=== PATIENT | female | born 1985 | race Caucasian/White ===

== ENCOUNTER → 2018-04-02 14:00 | Outpatient (CLI) | payer SELFPAY ==
[2018-04-03 17:13] LABS: Chlamydia Trachomatis by PCR Negative (Negative); Neisserai gonorrhoeae by PCR Negative (Negative); Probe Check PASS; Sample Adequacy Control PASS; Specimen Processing Control PASS
[2018-04-08 14:24] LABS: HPV Reflexed? NOT INDICATED
== END ==
PROVIDERS: Visit Provider Obstetrics & Gynecology
DX: Z12.4 Encounter for screening for malignant neoplasm of cervix (principal); Z11.3 Encounter for screening for infections with a predominantly sexual mode of transmission
CPT/HCPCS: 87491; 87591; 88175; G0145

== ENCOUNTER → 2018-05-02 10:33 | Outpatient (CLI) | payer SELFPAY ==
[2018-05-02 12:05] LABS: Color, Urine Yellow (Yellow); Glucose, Dipstick Normal (Normal); Ketone-Dipstick Negative (Negative); Leukocyte Esterase-Dipstick 500 /ul (Negative); Nitrite-Dipstick Negative (Negative); Occult Blood-Urine Negative /ul (Negative); Protein-Dipstick Negative (Negative); Urine Bilirubin Dipstick Negative (Negative); Urine Clarity Sl Cldy (Clear); Urine Urobilinogen Normal (Normal)
[2018-05-02 12:11] LABS: Absolute Lymphocyte Count 1.28 X10^3/ul (0.83-4.51); Absolute Neutrophil Count 7.5 X10^3/uL (2.0-7.7); Basophil# 0.01 X10^3/uL; Basophil% 0.1 % (0-1); Eosinophils% 1.1 % (0-5); Hemoglobin 11.3 g/dl (12.0-15.0); Lymphocyte # 1.28 X10^3/ul (4.0); Lymphocyte % 13.5 % (19-41); Mean Corp Hgb Conc 33.2 g/gl (32-36); Mean Corpuscular Hgb 30.5 pg (27.0-32.0); Mean Corpuscular Volume 91.6 fL (81-99); Mean Platelet Vol. 9.3 fl (6.2-12.0); Monocyte# 0.58 X10^3/uL; Monocyte% 6.1 % (0-10); Neutrophil # 7.47 X10^3/uL (2.7-7.7); Neutrophil % 78.5 % (47-70); Platelet Count 235 K/mm3 (150-450); RBC Distribution Width SD 45.6 fl (35.1-43.9); Red Blood Count 3.71 M/mm3 (4.2-5.4); White Blood Count 9.5 K/mm3 (4.4-11.0)
[2018-05-02 12:13] LABS: POSITIVE COUNT NO; POSITIVE DIFFERENTIAL NO; POSITIVE MORPHOLOGY NO
[2018-05-02 12:36] LABS: Thyroid Stim Hormone (TSH) 0.75 uIU/mL (0.358-3.74)
[2018-05-02 13:22] LABS: HIV - WCH Non-Reactive (Nonreactive); Rubella IgG 109.9 IU/mL
[2018-05-03 01:18] LABS: Prenatal RPR NONREACTIVE (NONREACTIVE)
[2018-05-03 10:58] LABS: HEPATITIS B SURFACE AG Negative (Negative); Hep C Antibodies <0.1 s/co ratio (0.0-0.9)
== END ==
LOC: WOBLAB 10:34
PROVIDERS: Visit Provider Obstetrics & Gynecology
DX: Z34.82 Encounter for supervision of other normal pregnancy, second trimester (principal)
CPT/HCPCS: 36415; 81002; 84443; 85025; 86703; 86762; 86803; 87340

== ENCOUNTER 2018-09-04 05:07 | Inpatient (IN) | payer MEDICAID, SELFPAY ==
[2018-09-04] VITALS (20 sets, daily range): BP systolic 84–104; BP diastolic 44–60; PULSE 59–78; RESP 14–18; TEMP 36.2–37; O2SAT 95–99; BMI 28.0
[2018-09-04] MEDS: Lactated Ringers 1,000 ML 999 ML IV (05:30)
[2018-09-04] MEDS: Lactated Ringers 1,000 ML 150 ML IV (06:01)
[2018-09-04 06:09] LABS: Prothrombin Time (Protime)PT. 13.2 SECONDS (11.7-14.9)
[2018-09-04 06:10] LABS: Partial Thromboplast Time 29.1 Seconds (24.1-36.2)
[2018-09-04 06:13] LABS: Hematocrit 35.9 % (37-47); Hemoglobin 11.9 g/dl (12.0-15.0); Mean Corp Hgb Conc 33.1 g/gl (32-36); Mean Corpuscular Hgb 31.4 pg (27.0-32.0); Mean Corpuscular Volume 94.7 fL (81-99); Mean Platelet Vol. 9.1 fl (6.2-12.0); Platelet Count 187 K/mm3 (150-450); RBC Distribution Width CV 14.2 % (11.6-14.6); RBC Distribution Width SD 46.3 fl (35.1-43.9); Red Blood Count 3.79 M/mm3 (4.2-5.4); White Blood Count 8.1 K/mm3 (4.4-11.0)
[2018-09-04 06:18] LABS: Differential Indicated MANUAL DIFF; POSITIVE COUNT YES; POSITIVE DIFFERENTIAL NO; POSITIVE MORPHOLOGY YES
[2018-09-04 07:04] LABS: Eosinophil 2 % (0-5); Lymphocyte 20 % (19-41); Metamyelocyte 1 % (0-1); Monocyte 5 % (0-10); Myelocyte 2 (0-0); Neutrophil-Band 1 % (0-5); Neutrophil-Segmented 69 % (47-70); Total Cells Counted 100 (MANUAL DIFF)
[2018-09-04 07:05] LABS: Anisocytosis 1+; Hypochromasia 1+; Microcytosis 1+; Platelet Estimate ADEQUATE (ADEQ); Polychromasia 1+
[2018-09-04] MEDS: Sodium Citrate/Citric Acid 30 ML UDC PO (07:22)
[2018-09-04] MEDS: Cefazolin 2 GM in 0.9% Normal Saline 100 ML IV (07:40)
--- NOTE | 2018-09-04 07:42 | PCM.OPRPT ---
Report of Operation Date of Procedure: 09/04/18 Pre-Operative Diagnosis: Prior Classical Section, Desires Sterilization Post-Operative Diagnosis: Prior Classical Section, Desires Sterilization Surgery/Procedure Performed:: Repeat Low Transverse Cervical Section and Bilateral Tubal Occlusion with Bilateral Salpingectomy Description of Surgical Findings:: Viable male with Apgars of 8/9 and an occiput anterior presentation with clear amniotic fluid. Dense adhesions of the omentum to the anterior uterus and dense adhesions of the uterus to the anterior abdominal wall. Normal-appearing fallopian tubes and ovaries. resident care spec: Kaitlin Mary Type of Anesthesia:: Spinal - with Duramorph Anesthesiologist: Eitan Cheung Drains: Lee to straight drain Estimated Blood Loss (mL): <500 cc Fluids Replaced: Crystalloid Description of Procedure: Surgeon: Jose Frey MD, FACOG Indication: This is a 32-year-old who presents for at 37 weeks gestation. care remarkable for a prior classical section for placenta previa at approximately 26-27 weeks gestation. care has otherwise been uneventful. The patient has been counseled regarding the risk and indications of this procedure including the possibility of bleeding infection and injury to surrounding structures such as bowel bladder. All questions were answered. Procedure: Patient was taken to the operating room where after spinal anesthesia was placed, the patient was prepped and draped in usual sterile fashion and a Lee catheter was placed. The abdomen was entered through the patient's prior Pfannenstiel incision and peritoneum was entered bluntly. After developing a bladder flap and performing extensive lysis of adhesions on the lower uterine segment a low transverse incision was made on the uterus and head was delivered onto the operative field the nose mouth and oropharynx were bulb suctioned. Kiwi suction was initially used due to high station of the head but was not necessary to deliver the head in the end. Subsequently a viable male was born with Apgars of 8/9. The was noted to cry move all extremities vigorously on the operative field. The umbilical cord was doubly clamped and ligated and handed to the nursery personnel who were present for the delivery. Placenta was delivered and noted to be 3 vessels and normal. Uterus was exteriorized and remaining placental tissue was removed. The uterus was then closed in 2 layers first with running locked 0 Vicryl suture followed by a second imbricating layer with 0 Vicryl suture. 0 Vicryl suture was then used in a horizontal mattress interrupted fashion to affect final hemostasis of the uterine incision line and reapproximating uterine serosa on the vertical incision line from her prior classical section. Normal fallopian tubes and ovaries were visualized and the uterus was returned to the pelvis. Mesosalpinx and fallopian tubes were then divided and ligated with 0 Vicryl suture and hemostasis was noted. Hemostasis was noted and rectus abdominis muscles were reapproximated in the midline with interrupted Number 0 Vicryl suture in a horizontal mattress fashion. Fascia was closed with running Number 1 PDS Strata fix suture. Subcutaneous tissue was irrigated with copious amounts of saline solution and then closed with running 3-0 Vicryl suture. Skin was closed with 4-0 monocryl suture in a running subcuticular fashion. Steri strips, telfa, and tape were placed across the incision. The patient tolerated the procedure well and was taken to the recovery room in satisfactory condition. Sponge, needle, and instrument counts were all reportedly correct. EBL was less than 500 cc. Ancef 2 gms IV was given prior to the procedure. Spicemen to Pathology: Bilateral fallopian tubes Complications: None Grafts/Implants Used: None - Complications None - Admit VTE Documentation VTE Present on Admission: Yes VTE Mechan Device Prophylaxis: SCD's VTE Pharm Prophylaxis ordered?: No Reason prophylaxis not ordered:: Treatment Not Indicated
--- NOTE | 2018-09-04 07:54 | FALS_PTH ---
PATIENT: SHELLY KEN LOC: [facility] U#:[id number] AGE/SX: 32/F ROOM: WP005 RE09/04/[address]: Dr. Jose Frey MD : 1985 BED: 1 DIS: 09/05/2018 SPEC #: [id number] RECD: 09/04/18 11:10 STATUS: AJ CHARLES #: [id number] ANN: 09/04/18 07:[address]: Jose Frey DEPT: SURGICAL PATHOLOGY RECD BY: Pravin Hardy ENTERED: 09/04/18 11:27 SP TYPE: FALL TUBES OTHR DR: Dr. Jose Morales MD Tissues: Fallopian tube Procedures: Surgery Specimen Level II HEADER OPERATION: Tubal ligation PRE-OP DIAGNOSIS: Desired sterilization TISSUE SUBMITTED: Fallopian tubes, right tube with suture MICROSCOPIC DIAGNOSIS Right and left fallopian tubes, bilateral salpingectomies: Complete cross-sections of fallopian tubes with no pathologic change. AM:esdras 09/05/18 MICROSCOPIC DESCRIPTION Slides are reviewed. GROSS DESCRIPTION Received is one container labeled with the patient's name and designated bilateral fallopian tubes, right tube with suture. The specimen consists of two fallopian tubes with an average length of 5 cm and has an average diameter of 0.6 cm. The right fallopian tube is inked black. Both fallopian tubes have normal fimbriated ends. No mass lesions are identified. Social Media Project Manager sections from both fallopian tubes are submitted in one cassette. / AM:esdras 09/04/18 TC:4 CPT: 28407 x2
[2018-09-04] MEDS: Oxytocin 30 units/NS 500 ml 30 UNITS/500 ML IV.SOLN 167 UNITS IV (07:55)
--- NOTE | 2018-09-04 09:10 | DCINST_ITS ---
Discharge Diet: No Restrictions Discharge Activity: May not drive while taking narcotic pain medications., May Shower, May Take a Tub Bath May resume sexual activity in: 4-6 weeks Lifting Restrictions: 20 pounds Additional Activity Instructions:: Nothing in the vagina for 4-6 weeks. You may return to work/school in 6 weeks. Call your doctor if your incision/area has: Continuous Slow Oozing, Sudden Increased Bleeding, Increased Pain/ Swelling, Increased Redness, Foul Smelling Discharge Call your doctor if you observe: Fever of 101 or Higher, Inability to urinate, Inability to have a bowel movement, Using more than one pad per hour Additional Instructions: If you experience any of the following, contact your healthcare provider. * Bleeding that soaks a pad every hour for 2 hours * Unrelieved incision or abdominal pain * Swelling, redness, discharge or bleeding from your incision or episiotomy site * Your incision begins to separate * Problems urinating (including inability to urinate or burning while urinating). * Visual changes * Severe headache * Flu-like symptoms * Pain or redness in one of both of your breasts * Pain, warmth, tenderness or swelling in your legs, especially the calf area * Frequent nausea and vomiting * Symptoms of depression or anxiety If you experience any of the following, call 911 or go to the nearest Emergency Room. * Chest pain * Problems breathing * Seizure activity * Partial or complete paralysis of a body part, slurred speech, weakness or drooping of the face, or a sudden inability to walk or hold your balance Allergies/Adverse Reactions: Allergies No Known Allergies Allergy (Verified 09/04/18 05:21) Medications to take at Discharge Docusate Sodium [Colace] 100 mg PO BID PRN PRN #60 cap 09/04/18 [employer]-3 Fatty Acids/Fish Oil [[employer] 3 Fish Oil Softgel] 1 tab PO DAILY 09/04/18 RX: Oxycodone [Oxyir] 5 mg PO Q6H PRN PRN 7 Days #20 tab 09/04/18 The following prescriptions were given: RX: Oxycodone [Oxyir] 5 mg PO Q6H PRN PRN 7 Days #20 tab PRN Reason: Severe Pain (6-05/22) Docusate Sodium [Colace] 100 mg PO BID PRN PRN #60 cap PRN Reason: Constipation Follow-Up: Call to make an appointment with your doctor for an incision check in 1-2 weeks. You will also need a 6 week post- follow up appointment. Test results from this visit will be discussed in further detail at your follow- up appointment, if applicable. Please Follow Up With: Jose Frey MD - [phone] When: Call to make an appointment for an incision check in 2 weeks. Primary Care Physician: Jose Morales [Primary Care Provider] -
[2018-09-04 11:08] LABS: Pathology Specimen OB SEE PATHOLOGY REPORT
[2018-09-04 14:31] LABS: Pathologist Review Reviewed
[2018-09-04] MEDS: Lactated Ringers 1,000 ML 100 ML IV (15:12)
[2018-09-04] MEDS: Ketorolac 30 MG/ML Syringe IV ×2 (15:14→21:34)
[2018-09-04] MEDS: Cefazolin 1 GM/50 ML BAG IV (18:02)
--- NOTE | 2018-09-04 22:23 | NURSING ---
Assisted pt back to room from [facility] via wheelchair, pt tolerated well. Pain is tolerable at this time, breast pump set up for pt, no questions or concerns.
[2018-09-05] MEDS: Lactated Ringers 1,000 ML 100 ML IV (01:38)
[2018-09-05] MEDS: Cefazolin 1 GM/50 ML BAG IV (01:38)
[2018-09-05 01:42] VITALS: PULSE 74; RESP 16; O2SAT 96
[2018-09-05] MEDS: Ketorolac 30 MG/ML Syringe IV ×2 (03:37→09:27)
[2018-09-05 03:41] VITALS: BP 85/41; PULSE 79; RESP 16; TEMP 37.5; O2SAT 95
[2018-09-05 05:35] VITALS: PULSE 74; RESP 20; O2SAT 95
[2018-09-05] MEDS: 0.9% Saline Lock 10 ML Syringe IV ×2 (05:37→09:28)
[2018-09-05 07:48] LABS: Hematocrit 31.9 % (37-47); Hemoglobin 10.4 g/dl (12.0-15.0); Mean Corp Hgb Conc 32.6 g/gl (32-36); Mean Corpuscular Hgb 31.5 pg (27.0-32.0); Mean Corpuscular Volume 96.7 fL (81-99); Mean Platelet Vol. 9.2 fl (6.2-12.0); Platelet Count 152 K/mm3 (150-450); RBC Distribution Width CV 14.2 % (11.6-14.6); RBC Distribution Width SD 47.6 fl (35.1-43.9)
[2018-09-05 07:54] LABS: Scan Indicated on CBC? Y/N NO
[2018-09-05 09:00] VITALS: BP 107/62; PULSE 82; RESP 16; TEMP 37.2; O2SAT 96
--- NOTE | 2018-09-05 09:12 | PCM.PN.OB ---
Subjective: Patient without complaints. Tolerating diet well. Pain well controlled. Positive flatus. Baby went to [facility] so patient would like to be discharged today if possible so that she can go to [facility] to be closer to her baby. - Physical Exam Vital Signs AF, VSS Temp Pulse Resp BP Pulse Ox 99.5 F H 74 20 H 85/41 L 95 09/05/18 03:41 09/05/18 05:35 09/05/18 05:35 09/05/18 03:41 09/05/18 05:35 Oxygen Delivery Method Room Air Weight: 153 lb Body Mass Index (BMI) 28.0 Intake and Output for Last 24 Hours 09/03/18 09/04/18 09/05/18 23:59 23:59 23:59 Intake Total 4488 / 4488 568 / 568 Output Total 2400 / 2400 1600 / 1600 Balance 2088 / 8 -1032 / -1032 Laboratory Tests Past 24 Hrs 09/04/18 09/05/18 05:30 07:05 WBC 11.0 RBC 3.30 L Hgb 10.4 L Hct 31.9 L MCV 96.7 MCH 31.5 MCHC 32.6 RDW 14.2 RDW Differential 47.6 H Plt Count 152 MPV 9.2 [address] Review Reviewed Wound is clean, dry, intact. Good urine output. Minimal vaginal bleeding. Hemoglobin okay. Medical Necessity - Tobacco Use Smoking Status: Never smoker Assessment/Plan Doing well status post operative day #1 repeat section and bilateral salpingectomy. Routine home-going instructions given in anticipation of patient discharge later today.
[2018-09-05 13:42] VITALS: BP 96/64; PULSE 87; RESP 18; TEMP 36.9; O2SAT 97
--- OUTSIDE RECORDS SUMMARY | 2018-11-06 01:21 | XMS RPT_ITS ---
:1985 Author Organization OHIP Care Team Providers Name Role Phone TAMIE OCASIO Admitting Unavailable TAMIE OCASIO Attending Unavailable TAMIE OCASIO Primary Care Unavailable TAMIE LOPEZ Consulting Unavailable PROVIDER, UNKNOWN Consulting Unavailable PROVIDER, UNKNOWN Consulting Unavailable PROVIDER, UNKNOWN Consulting Unavailable Tamie Oacsio Admitting Unavailable Tamie Ocasio Attending Unavailable Tamie Ocasio Referring Unavailable Tamie Lopez Primary Care Unavailable Tamie Ocasio Attending Unavailable Tamie Ocasio Attending Unavailable PROBLEMS PROBLEMS DATE TYPE CONDITION / CODE ATTENDING STATUS SOURCE 09/05/2018 Unknown G89.18 - Other acute Tamie Ocasio postprocedural pain Community / G89.18(ICD-10) Hospital Repository 04/03/2018 Unknown Z12.4 - Encounter Tamie Ocasio for screening for Community malignant neoplasm Hospital of cervix / Repository Z12.4(ICD-10) 04/03/2018 Unknown Z11.3 - Encounter Tamie Ocasio for screening for Community infections with a Hospital predominantly sexual Repository mode of transmission / Z11.3(ICD-10) PROCEDURES PROCEDURES No Procedure Records FoundRESULTS RESULTS CBC-COMPLETE BLOOD CNT Collected: 09/05/2018 Status: F Source: [place] NO DIFF 7:05 AM [facility] REPOSITORY Order Comment: Comments: Day #1 Reason for Laboratory Test TYPE CODE TESTS RESULT OUT OF RANGE REFERENCE UNITS LAB L100.1000 4.4-11.0 K/mm3 Normal WBC 11.0 LAB L100.1200 4.2-5.4 M/mm3 Low RBC 3.30 LAB L100.1300 12.0-15.0 g/dl Low HGB 10.4 LAB L100.1400 37-47 % Low HCT 31.9 LAB L100.1500 81-99 fL Normal MCV 96.7 LAB L100.1600 27.0-32.0 pg Normal MCH 31.5 LAB L100.1700 32-36 g/gl Normal MCHC 32.6 LAB L100.1810 11.6-14.6 % Normal RDW CV 14.2 LAB L100.1820 35.1-43.9 fl High RDW SD 47.6 LAB L100.1900 150-450 K/mm3 Normal PLT 152 LAB L100.2000 6.2-12.0 fl Normal MPV 9.2 Performed By: #### L100.0500 #### [facility] [address], [address] DISCHARGE INSTRUCTION Observed: 09/04/2018 Status: F Source: [place] 9:10 AM [facility] REPOSITORY [facility] Medical Records Department [address] [place] [address] Instructions for Home/Discharge Instructions 09/04/18 0909 MR#: [id number] Acct: [id number] Name: SHELLY KEN Rep #: [id number] : 1985 32 From: Tamie Ocasio MD PCP: Tamie Lopez MD Status: ADM IN Discharge Diet: No Restrictions Discharge Activity: May not drive while taking narcotic pain medications., May Shower, May Take a Tub Bath May resume sexual activity in: 4-6 weeks Lifting Restrictions: 20 pounds Additional Activity Instructions:: Nothing in the vagina for 4-6 weeks. You may return to work/school in 6 weeks. Call your doctor if your incision/area has: Continuous Slow Oozing, Sudden Increased Bleeding, Increased Pain/ Swelling, Increased Redness, Foul Smelling Discharge Call your doctor if you observe: Fever of 101 or Higher, Inability to urinate, Inability to have a bowel movement, Using more than one pad per hour Additional Instructions: If you experience any of the following, contact your healthcare provider. * Bleeding that soaks a pad every hour for 2 hours * Unrelieved incision or abdominal pain * Swelling, redness, discharge or bleeding from your incision or episiotomy site * Your incision begins to separate * Problems urinating (including inability to urinate or burning while urinating). * Visual changes * Severe headache * Flu-like symptoms * Pain or redness in one of both of your breasts * Pain, warmth, tenderness or swelling in your legs, especially the calf area * Frequent nausea and vomiting * Symptoms of depression or anxiety If you experience any of the following, call 911 or go to the nearest Emergency Room. * Chest pain * Problems breathing * Seizure activity * Partial or complete paralysis of a body part, slurred speech, weakness or drooping of the face, or a sudden inability to walk or hold your balance Allergies/Adverse Reactions: Allergies No Known Allergies Allergy (Verified 09/04/18 05:21) Medications to take at Discharge Docusate Sodium [Colace] 100 mg PO BID PRN PRN #60 cap 09/04/18 [place]-3 Fatty Acids/Fish Oil [[place] 3 Fish Oil Softgel] 1 tab PO DAILY 09/04/18 RX: Oxycodone [Oxyir] 5 mg PO Q6H PRN PRN 7 Days #20 tab 09/04/18 The following prescriptions were given: RX: Oxycodone [Oxyir] 5 mg PO Q6H PRN PRN 7 Days #20 tab PRN Reason: Severe Pain (-05/22) Docusate Sodium [Colace] 100 mg PO BID PRN PRN #60 cap PRN Reason: Constipation Follow-Up: Call to make an appointment with your doctor for an incision check in 1-2 weeks. You will also need a 6 week post- follow up appointment. Test results from this visit will be discussed in further detail at your follow-up appointment, if applicable. Please Follow Up With: Tamie Ocasio MD - [phone] When: Call to make an appointment for an incision check in 2 weeks. Primary Care Physician: Tamie Lopez [Primary Care Provider] - 09/04/18 0910 <Electronically signed by Tamie Ocasio MD> Date Tamie Ocasio MD CC: Tamie Lopez MD Signed OPERATIVE REPORT Observed: 09/04/2018 Status: F Source: [place] 9:08 AM [facility] REPOSITORY [facility] Medical Records Department [address] [place] [address] Operative Report 09/04/18 0742 MR#: [id number] Acct: [id number] Name: SHELLY KEN Rep #: [id number] : 1985 32 From: Tamie Ocasio MD PCP: Tamie Lopez MD Status: ADM IN [id number] Date of Procedure: 09/04/18 Pre-Operative Diagnosis: Prior Classical Section, Desires Sterilization Post-Operative Diagnosis: Prior Classical Section, Desires Sterilization Surgery/Procedure Performed:: Repeat Low Transverse Cervical Section and Bilateral Tubal Occlusion with Bilateral Salpingectomy Description of Surgical Findings:: Viable male infant with Apgars of 8/9 and an occiput anterior presentation with clear amniotic fluid. Dense adhesions of the omentum to the anterior uterus and dense adhesions of the uterus to the anterior abdominal wall. Normal-appearing fallopian tubes and ovaries. septic cleaner: Kaitlin Mary Type of Anesthesia:: Spinal - with Duramorph Anesthesiologist: Eitan Cheung Drains: Lee to straight drain Estimated Blood Loss (mL): <500 cc Fluids Replaced: Crystalloid Description of Procedure: Surgeon: Tamie Ocasio MD, FACOG Indication: This is a 32-year-old who presents for at 37 weeks gestation. care remarkable for a prior classical section for placenta previa at approximately 26-27 weeks gestation. care has otherwise been uneventful. The patient has been counseled regarding the risk and indications of this procedure including the possibility of bleeding infection and injury to surrounding structures such as bowel bladder. All questions were answered. Procedure: Patient was taken to the operating room where after spinal anesthesia was placed, the patient was prepped and draped in usual sterile fashion and a Lee catheter was placed. The abdomen was entered through the patient's prior Pfannenstiel incision and peritoneum was entered bluntly. After developing a bladder flap and performing extensive lysis of adhesions on the lower uterine segment a low transverse incision was made on the uterus and head was delivered onto the operative field the nose mouth and oropharynx were bulb suctioned. Kiwi suction was initially used due to high station of the head but was not necessary to deliver the head in the end. Subsequently a viable male was born with Apgars of 8/9. The infant was noted to cry move all extremities vigorously on the operative field. The umbilical cord was doubly clamped and ligated and handed to the nursery personnel who were present for the delivery. Placenta was delivered and noted to be 3 vessels and normal. Uterus was exteriorized and remaining placental tissue was removed. The uterus was then closed in 2 layers first with running locked 0 Vicryl suture followed by a second imbricating layer with 0 Vicryl suture. 0 Vicryl suture was then used in a horizontal mattress interrupted fashion to affect final hemostasis of the uterine incision line and reapproximating uterine serosa on the vertical incision line from her prior classical section. Normal fallopian tubes and ovaries were visualized and the uterus was returned to the pelvis. Mesosalpinx and fallopian tubes were then divided and ligated with 0 Vicryl suture and hemostasis was noted. Hemostasis was noted and rectus abdominis muscles were reapproximated in the midline with interrupted Number 0 Vicryl suture in a horizontal mattress fashion. Fascia was closed with running Number 1 PDS Strata fix suture. Subcutaneous tissue was irrigated with copious amounts of saline solution and then closed with running 3-0 Vicryl suture. Skin was closed with 4-0 monocryl suture in a running subcuticular fashion. Steri strips, telfa, and tape were placed across the incision. The patient tolerated the procedure well and was taken to the recovery room in satisfactory condition. Sponge, needle, and instrument counts were all reportedly correct. EBL was less than 500 cc. Ancef 2 gms IV was given prior to the procedure. Spicemen to Pathology: Bilateral fallopian tubes Complications: None Grafts/Implants Used: None - Complications None - Admit VTE Documentation VTE Present on Admission: Yes VTE Mechan Device Prophylaxis: SCD's VTE Pharm Prophylaxis ordered?: No Reason prophylaxis not ordered:: Treatment Not Indicated 09/04/18 0908 <Electronically signed by Tamie Ocasio MD> Date Tamie Ocasio MD CC: Tamie Lopez MD; Tamie Ocasio MD Signed FALLOPIAN TUBES/STERILIZATION Observed: 09/04/2018 Status: F Source: [place] 7:54 AM [facility] REPOSITORY Patient: SHELLY KEN : 1985 (32/F) Acct Num: [id number] Phys: Shante LEE,Tamie Unit Num: [id number] Loc: WP [id number] Specimen: [id number] Received: 09/04/18 - 1110 Spec Type: FALL TUBES TISSUES 1 TISSUES: Fallopian tube GROSS DESCRIPTION Received is one container labeled with the patient's name and designated bilateral fallopian tubes, right tube with suture. The specimen consists of two fallopian tubes with an average length of 5 cm and has an average diameter of 0.6 cm. The right fallopian tube is inked black. Both fallopian tubes have normal fimbriated ends. No mass lesions are identified. [employer] sections from both fallopian tubes are submitted in one cassette. / AM:esdras 09/04 TC:4 CPT: 61633 x2 HEADER OPERATION: Tubal ligation PRE-OP DIAGNOSIS: Desired sterilization TISSUE SUBMITTED: Fallopian tubes, right tube with suture MICROSCOPIC DESCRIPTION Slides are reviewed. MICROSCOPIC DIAGNOSIS Right and left fallopian tubes, bilateral salpingectomies: Complete cross-sections of fallopian tubes with no pathologic change. AM:esdras 09/05/18 Signed Harrison Jones DO 09/05/18 <signature on file> Performed By: #### PFALS #### [facility] [address] [place], [address] PROTHROMBIN TIME W/INR Collected: 09/04/2018 Status: F Source: [place] 5:30 AM [facility] REPOSITORY TYPE CODE TESTS RESULT OUT OF RANGE REFERENCE UNITS LAB L300.4150 11.7-14.9 SECONDS Normal PROTIME 13.2 LAB L300.4200 Normal INR 1.0 Performed By: #### L300.3900, L300.4310 #### [facility] [address] [place], [address] PARTIAL THROMBOPLAST Collected: 09/04/2018 Status: F Source: [place] TIME 5:30 AM [facility] REPOSITORY TYPE CODE TESTS RESULT OUT OF RANGE REFERENCE UNITS LAB L300.4310 24.1-36.2 Seconds Normal PTT 29.1 Performed By: #### L300.3900, L300.4310 #### [facility] [address] [place], [address] CBC W/DIFF, AUTOMATED Collected: 09/04/2018 Status: C Source: [place] 5:30 AM [facility] REPOSITORY TYPE CODE TESTS RESULT OUT OF REFERENCE UNITS RANGE LAB L100.1000 4.4-11.0 K/mm3 WBC Normal 8.1 LAB L100.1200 4.2-5.4 M/mm3 Low RBC 3.79 LAB L100.1300 12.0-15.0 g/dl Low HGB 11.9 LAB L100.1400 37-47 % Low HCT 35.9 LAB L100.1500 81-99 fL MCV Normal 94.7 LAB L100.1600 27.0-32.0 pg MCH Normal 31.4 LAB L100.1700 32-36 g/gl MCHC Normal 33.1 LAB L100.1810 11.6-14.6 % RDW CV Normal 14.2 LAB L100.1820 35.1-43.9 fl RDW SD High 46.3 LAB L100.1900 150-450 K/mm3 PLT Normal 187 LAB L100.2000 6.2-12.0 fl MPV Normal 9.1 LAB L100.3100 MANUAL DIFF CELLS COUNTED Normal 100 LAB L100.3200 47-70 % SEGS Normal 69 LAB L100.3300 0-5 % BAND Normal 1 LAB L100.3400 0-1 % META Normal 1 LAB L100.3500 0-0 MYELO High 2 LAB L100.3800 19-41 % LYMPH Normal 20 LAB L100.3900 0-10 % MONOCYTE Normal 5 LAB L100.4000 0-5 % EOS Normal 2 LAB L100.5500 ADEQ PLT EST Normal ADEQUATE LAB L100.7300 ANISO Normal 1+ LAB L100.7500 POLYCHROMASIA Normal 1+ LAB L100.7600 HYPOCHROMASIA Normal 1+ LAB L100.7700 MICROCYTES Normal 1+ LAB L100.9900 PATH REV Normal Reviewed Result Comment: Normocytic anemia. Clinical correlation suggested. Harrison Jones D.O. 09/04/18 AMENDED REPORT 09/04/18 1431 PATH REV previously reported as: December Performed By: #### L100.0100 #### [facility] [address] [place], [address] TYPE AND SCREEN Collected: 09/04/2018 Status: F Source: [place] 5:30 AM [facility] REPOSITORY Order Comment: Reason for Type AND Screen/Red Cells: SURGERY Type of Surgery: TYPE CODE TESTS RESULT OUT OF RANGE REFERENCE UNITS LAB B10.0800 A Normal BLOOD NEGATIVE TYPE GEL Performed By: #### B101.7450 #### [facility] [address] [place], [address] ANTIBODY SCREEN, Collected: 09/04/2018 Status: F Source: [place] INDIRECT 5:30 AM [facility] REPOSITORY TYPE CODE TESTS RESULT OUT OF RANGE REFERENCE UNITS LAB B100.7000 Normal ANTIBODY NEGATIVE SCREEN Performed By: #### B100.7000 #### [facility] [address] [place], [address] CBC Collected: 07/02/2018 Status: F Source: [place] 9:00 AM [facility] REPOS[facility] TYPE CODE TESTS RESULT OUT OF RANGE REFERENCE UNITS LAB CBC(LOINC) CBC Result Comment: CBC-COMPLETE BLOOD COUNT LAB WBC(LOINC) 4.5 - 10.8 x 10EE3/UL WBC High 10.9 LAB RBC(LOINC) 4.10 - x 10EE6/UL 5.30 RBC Low 3.22 LAB HEMOGLOBIN(LOINC 12.0 - g/dl ) 16.0 Low HEMOGLOBIN 10.1 LAB HEMATOCRIT(LOINC 34.0 - % ) 46.0 Low HEMATOCRIT 29.0 LAB MCV(LOINC) 80 - 99 fl MCV 90 LAB MCH(LOINC) 27 - 33 pg MCH 31 LAB MCHC(LOINC) 32 - 36 X10 3 MCHC 35 LAB RDW/CV(LOINC) 12.0 - % 15.6 RDW/CV 13.0 LAB PLATELET(LOINC) 150 - 450 x10EE3/UL PLATELET 250 LAB MPV(LOINC) 6.6 - 10.5 fl MPV 7.5 Result Comment: AUTOMATED DIFFERENTIAL LAB NEUT %(LOINC) 46.0 - 76.0 % NEUT % High 82.2 LAB LYMPH %(LOINC) 20.0 - 45.0 % Low LYMPH % 9.7 LAB MONOS %(LOINC) 0.0 - 10.0 % MONOS % 5.9 LAB EO %(LOINC) 0.0 - 7.0 % EO % 1.6 LAB BASO %(LOINC) 0.0 - 2.0 % BASO % 0.6 LAB Lymph #(LOINC) 0.80 - 2.80 x10EE3/U L Lymph # 1.10 LAB Neut #(LOINC) 1.50 - 7.10 x10EE3/U L Neut # High 8.90 LAB Forrest #(LOINC) 0.20 - 1.00 x10EE3/U L Forrest # 0.60 LAB EO #(LOINC) 0.00 - 0.50 x10EE3/U L EO # 0.20 LAB Baso #(LOINC) 0.00 - 0.10 x10EE3/U L Baso # 0.10 LAB MANUAL DIFF(LOINC) MANUAL DIFF N/A LAB MORPHOLOGY(LOINC ) MORPHOLOGY N/A Result Comment: {CD] Performed By: #### [id number] #### [facility],[address] [place] [address] GLUCOSE CHALLENGE 50GM Collected: 07/02/2018 Status: F Source: [place] 1 HOUR 9:00 AM [facility] REPOSITORY TYPE CODE TESTS RESULT OUT OF REFERENCE UNITS RANGE LAB GLUCOSE CHALLENGE 50GM 1 HOUR(LOINC) GLUCOSE CHALLENGE 50GM 1 HOUR Result Comment: GLUCOSE CHALLENGE 50 GMS 1 HOUR LAB GLUCOSE 1HR(LOINC) 70 - 140 mg/dl GLUCOSE 1HR 77 Performed By: #### [id number] #### [facility],[address] [place] [address] BB ANTIBODY SCREEN Collected: 07/02/2018 Status: F Source: [place] 9:00 AM [facility] REPOSITORY TYPE CODE TESTS RESULT OUT OF REFERENCE UNITS RANGE LAB ANTIBODY negative SCR(LOINC) ANTIBODY SCR negative Performed By: #### [id number] #### [facility] [facility] [address] URINALYSIS, ROUTINE Collected: 05/02/2018 Status: F Source: [place] (DIPSTICK) 10:36 AM [facility] REPOSITORY Order Comment: How was Urine Obtained? CLEAN CATCH TYPE CODE TESTS RESULT OUT OF RANGE REFERENCE UNITS LAB L400.3000 Yellow COLOR Normal Yellow LAB L400.3050 Clear Sl Normal CLARITY Cldy LAB L400.3200 Normal mg/dl Normal GLUCOSE, UR Normal LAB L400.3300 Negative mg/dL Normal BILIRUBIN URINE Negative LAB L400.3400 Negative mg/dl Normal KETONE UR Negative LAB L400.3465 1.002-1.030 Normal SP.GR. DIPSTX 1.010 LAB L400.3550 5.0 - 8.0 pH UR Normal 7.0 LAB L400.3600 Negative mg/dl PROT Normal DIPSTX Negative LAB L400.3700 Normal mg/dl Normal UROBILI Normal LAB L400.3750 Negative Normal NITRITE UR Negative LAB L400.3780 Negative /ul Normal OCCULT BLOOD-UR Negative LAB L400.3800 Negative /ul High LEUK ESTERASE 500 Performed By: #### L400.2010 #### [facility] [address] [place], [place], [address] CBC W/DIFF, AUTOMATED Collected: 05/02/2018 Status: F Source: [place] 10:36 AM [facility] REPOSITORY TYPE CODE TESTS RESULT OUT OF RANGE REFERENCE UNITS LAB L100.1000 4.4-11.0 K/mm3 Normal WBC 9.5 LAB L100.1200 4.2-5.4 M/mm3 Low RBC 3.71 LAB L100.1300 12.0-15.0 g/dl Low HGB 11.3 LAB L100.1400 37-47 % Low HCT 34.0 LAB L100.1500 81-99 fL Normal MCV 91.6 LAB L100.1600 27.0-32.0 pg Normal MCH 30.5 LAB L100.1700 32-36 g/gl Normal MCHC 33.2 LAB L100.1810 11.6-14.6 % Normal RDW CV 14.0 LAB L100.1820 35.1-43.9 fl High RDW SD 45.6 LAB L100.1900 150-450 K/mm3 Normal PLT 235 LAB L100.2000 6.2-12.0 fl Normal MPV 9.3 LAB L100.2100 47-70 % High NEUT% 78.5 LAB L100.2200 19-41 % Low LY% 13.5 LAB L100.2300 0-10 % Normal MONO% 6.1 LAB L100.2400 0-5 % Normal EO% 1.1 LAB L100.2500 0-1 % Normal BASO% 0.1 LAB L100.2550 0.0-0.9 % Normal IM GRAN % 0.700 Result Comment: IG% - Immature Granulocytes (promyelocytes, myelocytes and metamyelocytes) > 1% indicates that a LEFT SHIFT is Present. LAB L100.2620 2.0-7.7 X10 3/uL Normal Absolute Neut 7.5 LAB L100.2720 0.83-4.51 X10 3/ul Normal Absolute Lymph 1.28 Performed By: #### L100.0100 #### [facility] [address] [place] [address], [address] THYROID STIM HORMONE Collected: 05/02/2018 Status: F Source: [place] (TSH) 10:36 AM [facility] REPOSITORY TYPE CODE TESTS RESULT OUT OF RANGE REFERENCE UNITS LAB L501.9520 0.358-3.74 uIU/mL Normal TSH 0.75 Performed By: #### L501.9520 #### [facility] [address] [place], [place], [address] RUBELLA IGG Collected: 05/02/2018 Status: F Source: [place] 10:36 AM [facility] REPOSITORY TYPE CODE TESTS RESULT OUT OF RANGE REFERENCE UNITS LAB L509.4000 IU/mL Normal Rubella IgG 109.9 Result Comment: Antibody results Interpretation of Immune Status < 5 IU/ml Presumed Non-immune 5 - < 10 IU/ml Equivocal > or = 10 IU/ml Presumed Immune Performed By: #### L509.4000, L3890.6005 #### [facility] [address] [place], [address] HIV - [facility] Collected: 05/02/2018 Status: F Source: [place] 10:36 AM [facility] REPOSITORY TYPE CODE TESTS RESULT OUT OF RANGE REFERENCE UNITS LAB L3890.6005 Nonreactive Normal HIV - [facility] Non-Reactive Performed By: #### L509.4000, L3890.6005 #### [facility] [address] [place] [address]. [place], [place], [address] T AND S-NO Collected: 05/02/2018 Status: F Source: [place] W/PNP 10:36 AM [facility] REPOSITORY Order Comment: Reason for Type AND Screen/Red Cells: Surgery? N TYPE CODE TESTS RESULT OUT OF RANGE REFERENCE UNITS LAB B10.0800 A Normal BLOOD NEGATIVE TYPE GEL LAB B100.4050 Normal Ab SCREEN NEGATIVE GEL Performed By: #### B100.7550 #### [facility] [address] [place] [address]. [place], [address] RPR Collected: 05/02/2018 Status: F Source: [place] 10:36 AM [facility] REPOSITORY TYPE CODE TESTS RESULT OUT OF REFERENCE UNITS RANGE LAB L700.5100 NONREACTIVE Normal RPR NONREACTIVE Performed By: #### L700.5100 #### [facility] [address] [place] [address]. [place], [address] HEPATITIS B SURFACE Collected: 05/02/2018 Status: F Source: [place] AG 10:36 AM [facility] REPOSITORY TYPE CODE TESTS RESULT OUT OF RANGE REFERENCE UNITS LAB L3100.0400 Negative Normal HB Negative SURF AG Result Comment: Performed at: - [facility] [address] [id number] Electrician: Konrad Gold PhD, Phone: [phone] Performed By: #### L3100.0390, L3100.0625 #### [facility] (refer to report for specific site) refer to report for address and phone number HEPATITIS C ANTIBODIES Collected: 05/02/2018 Status: F Source: [place] 10:36 AM [facility] REPOSITORY TYPE CODE TESTS RESULT OUT OF RANGE REFERENCE UNITS LAB L3100.0650 0.0-0.9 s/co ratio Normal HEP C AB <0.1 Result Comment: Negative: < 0.8 Indeterminate: 0.8 - 0.9 Positive: > 0.9 The CDC recommends that a positive HCV antibody result be followed up with a HCV Nucleic Acid Amplification test (342033). Performed By: #### L3100.0390, L3100.0625 #### [facility] (refer to report for specific site) refer to report for address and phone number CT/NG [facility] BY PCR Collected: 04/02/2018 Status: F Source: [place] 2:00 PM [facility] REPOSITORY TYPE CODE TESTS RESULT OUT OF RANGE REFERENCE UNITS LAB L8200.2100 Negative Normal Chlam Negative Trac PCR LAB L8200.2200 Negative Normal NG by Negative PCR Performed By: #### L8200.1999 #### [facility] [address] [place], [address] PAP IG W/REFLEX HR Collected: 04/02/2018 Status: F Source: [place] HPV APTIMA 2:00 PM [facility] REPOSITORY Order Comment: CYTOLOGY INFORMATION: - CLINICAL INFORMATION: - DATE LMP/MENOPAUSE: 12/2017 LMP - COLLECTION VIAL: Thin Prep Vial - EDUCATIONAL RESOURCE COORDINATOR SOURCE: CERVICAL/ENDOCERVICAL - COLLECTION TECHNIQUE: BRUSH/SPATULA Specimen Comment: [id number] Specimen Comment: No. of containers..01 ThinPrep Vial TYPE CODE TESTS RESULT OUT OF RANGE REFERENCE UNITS LAB L7400.0800 . Normal DIAGN Comment Result Comment: NEGATIVE FOR INTRAEPITHELIAL LESION AND MALIGNANCY. LAB L7400.0900 . Normal ADEQ Comment Result Comment: Satisfactory for evaluation. Endocervical and/or squamous metaplastic cells (endocervical component) are present. LAB L7400.1400 . Normal PERFORM Comment Result Comment: Jairo Garcia Shield Runner (ASCP) LAB L7400.2575 . Normal TEST METHOD Comment Result Comment: This liquid based ThinPrep(R) pap test was screened with the use of an image guided system. LAB L7400.2600 . Normal . COMM LAB L7400.2700 . Normal PAPSMR Comment Result Comment: The Pap smear is a screening test designed to aid in the detection of premalignant and malignant conditions of the uterine cervix. It is not a diagnostic procedure and should not be used as the sole means of detecting cervical cancer. Both false-positive and false-negative reports do occur. LAB L7400.2800 . Normal HPV RFLX Comment Result Comment: The HPV DNA reflex criteria were not met with this specimen result therefore, no HPV testing was performed. Performed at: - [facility], [place] [id number] Electrician: Sammi Cr MD, Phone: [phone] Performed By: #### L7400.0357 #### [facility] (refer to report for specific site) refer to report for address and phone number ALLERGIES ALLERGIES DATE TYPE / CODE NAME / CODE REACTION SEVERITY SOURCE 09/04/2018 Drug No Known Unknown [place] Allergy/[id number](S Allergies/F0019 [facility] [place]) [address](RXNORM) Hospital Repository Miscellaneous No Known Moderate [facility] Allergy/[id number](S Allergies (Sever[facility] [facility]) [facility] (Qualifier Repository Value) ENCOUNTERS ENCOUNTERS ADMIT/DISCHARGE ACCOUNT ADMITTING ENCOUNTER LOCATION SOURCE NUMBER CLASS 09/04/2018/ [id number] Tamie Ocasio Inpatient [place] 9 2 Encounter [facility] ing:WPRoom: Repository [id number]: 1 07/02/2018/ [id number] TAMIE OCASIO Ambulatory [facility] 8 [facility] Repository 05/02/2018 [id number] Ambulatory [place] 2 [facility] ing:WOBLAB Repository 04/02/2018 [id number] Ambulatory [place] 0 [facility] ing:LABSPEC Repository PAYERS PAYERS ENCOUNTER GUARANTOR PAYER SUBSCRIBER SOURCE 09/04/2018 SHELLY Hopkins Primary SHELLY PANIAGUA E Insurance:ALL JUAREZ: [facility] [id number] [facility], Number: [place]ository [place] [id number]: [id number] Date:[id number], [place] [id number]: 09/04/2018 Secondary NOT GIVENUNK [place] Insurance:SELF PAY [facility] Number: Effective Repository Date:2018-06-19 07/02/2018 SHELLY Hopkins Primary SHELLY BAIRDB: Insurance:MEDICAID MILLERDOB: [facility] [id number] [id number] [facility] Number: E [facility], [id number] [place], [place] [address]Fwj: Date:Plan Name:[facility] [id number] () 05/02/2018 SHELLY Primary Insurance:SELF NOT GIVENUNK Shanika [address] Number: Effective [facility], Date:2018-05-02 [place] [phone]: () 04/02/2018 SHELLY Primary Insurance:SELF NOT GIVENUNK [place] [address] PAY [place] Number: Effective [facility], Date:2018-04-02 [place] [phone]: ()
== END 2018-09-05 14:05 | disposition home or self-care (01) | DRG 540 ==
PROVIDERS: Admitting Provider Obstetrics & Gynecology; Family Provider Family Medicine; PCP Family Medicine; Referring Provider Obstetrics & Gynecology; Visit Provider Obstetrics & Gynecology
PROC: 10D00Z1 Extraction of Products of Conception, Low, Open Approach (ICD-10-PCS; CPT 59514; principal; 2018-09-04 07:15)
DX: O34.212 Maternal care for vertical scar from previous cesarean delivery (principal); Z3A.37 37 weeks gestation of pregnancy; Z37.0 Single live birth; Z30.2 Encounter for sterilization
CPT/HCPCS: 85025; 85027; 85610; 85730; 86850; 86900; 88302; 99218; J7120; A4216; G0378; J2405